=== PATIENT | female | born 1980 | race Caucasian/White ===

== ENCOUNTER 2020-04-13 13:26 | Emergency (ER) | payer MEDICAID, SELFPAY ==
--- NOTE | ~2020-04-13 | XR_ITS ---
XR chest 1V portable DATE: 04/13/2020 14:00 INDICATION: Fever TECHNIQUE: Portable AP chest on 04/13/2020 at 1402 hours COMPARISON: None FINDINGS: Normal heart size. No hilar or mediastinal enlargement. No pulmonary infiltrate or consolid ation, pleural effusion or pulmonary vascular congestion or pneumothorax. Included skeletal structure s are unremarkable. IMPRESSION: No active cardiopulmonary disease Reviewed, dictated and finalized at location A.
[2020-04-13 13:28] VITALS: BP 139/99; PULSE 93; RESP 18; TEMP 36.2; O2SAT 96
--- NOTE | 2020-04-13 13:47 | ED.GENADULT ---
HPI - General Adult General Chief complaint: Fever Stated complaint: Fever x3 days, history of possible spider bite Time Seen by Provider: 04/13/20 13:35 Source: patient History of Present Illness HPI narrative: Patient is a 39 y/o female complaining of fever up to 103 for last 3 days. She states that she took Ibuprofen which helps with her fever. She has some decreased appetite. She denies any vomiting, diarrhea, cough or SOB. Of noted, she had spider bite to her left perineum area 2-3 weeks ago for which she received antibiotic treatment. She denies any pain. She on her menses. Related Data Home Medications Medication Instructions Recorded Confirmed Unable to Obtain Home Medications 06/19/19 Allergies Allergy/AdvReac Type Severity Reaction Status Date / Time clarithromycin [From Biaxin] AdvReac Vomiting Verified 04/13/20 14:08 codeine AdvReac Vomiting Verified 04/13/20 14:08 Review of Systems Constitutional: Constitutional: Reports chills, Reports fever(s), Denies headache(s) and Denies weakness Eyes: Eyes: Denies blurry vision ENT: Denies headache(s) and Denies neck pain Cardiovascular: Cardiovascular: Denies chest pain and Denies dyspnea Respiratory: Respiratory: Denies cough and Denies dyspnea Gastrointestinal: Gastrointestinal: Denies abdominal pain, Denies diarrhea, Denies nausea and Denies vomiting Genitourinary: Genitourinary: Denies hematuria and Denies dysuria Musculoskeletal: Musculoskeletal: Denies back pain and Denies neck pain Neurologic: Denies headache(s) and Denies weakness PMFSH Past Medical History Medical History Alcohol abuse Anxiety Depression PTSD (post-traumatic stress disorder) Smoker Surgical History Surgical History H/O oral surgery Social History Social History Smoking packs per day: 0.5 Smoking cigarettes per day: 10.0 Smoking status: Current every day smoker Alcohol intake: former Substance use: former Substance use type: unknown Gender identity (if verbalized by the patient): Female Exam Const: General: no acute distress and well developed Orientation/consciousness: oriented to person, oriented to place, oriented to time and patient oriented x3 HENMT: Head: normocephalic Ears: external ears normal General nose exam: Normal external nose present Eyes: General: appearance normal, both eyes and all related structures Conjunctivae: conjunctivae normal Neck: Neck: normal visual inspection and full ROM Chest: Chest palpation & inspection: normal inspection of the chest and no tenderness Resp: Effort & Inspection: normal respiratory effort Auscultation: clear to auscultation bilaterally Cardio: Rate: regular rate Rhythm: regular rhythm GI: GI Palp: No abdominal tenderness and Yes Soft to palpation Skin: General skin exam: normal color and turgor normal Other: left perineum without sign of skin infection or abscess Neuro: General: oriented to person, oriented to place, oriented to time and patient oriented x3 Cognition (Neuro): normal cognition Extrem: General: normal to inspection, full ROM and no pedal edema Psych: Appearance: grossly normal Mental Status: mental status grossly normal Affect: normal affect Course Vital Signs Vital signs: Vital Signs Temperature 36.2 C L 04/13/20 13:28 Pulse Rate 93 04/13/20 13:28 Respiratory Rate 18 04/13/20 13:28 Blood Pressure 139/99 H 04/13/20 13:28 Pulse Oximetry 96 04/13/20 13:28 Temperature 36.2 C L 04/13/20 13:28 Pulse Rate 80 04/13/20 15:54 Respiratory Rate 18 04/13/20 15:54 Blood Pressure 132/84 04/13/20 15:54 Pulse Oximetry 98 04/13/20 15:54 Medical Decision Making Vital Signs Vital Signs: Vital Signs Temperature 36.2 C L 04/13/20 13:28 Pulse Rate 93 04/13/20 13:28 Respiratory Rate 18 04/13/20 13:28 Blood Pressure 139/99
[2020-04-13 14:14] LABS: Basophils Percent Auto 0.2 % (0.2-1.2); Eosinophils Absolute Auto 0.1 K/mm3 (0-0.3); Eosinophils Percent Auto 1.3 % (0-4.4); Hematocrit 39.4 % (37.0-47.0); Hemoglobin 13.6 g/dL (12.0-15.0); Immature Granulocyte Absolute 0.02 K/mm3 (0.00-0.031); Immature Granulocyte Percent A 0.4 % (0-0.5); Lymphocytes Absolute Auto 1.66 K/mm3 (0.9-3.2); Lymphocytes Percent Auto 29.9 % (18.3-44.2); Mean Corpuscular HGB Conc 34.5 g/dl (32-36); Mean Corpuscular Hemoglobin 29.8 pg (26-34); Mean Corpuscular Volume 86.4 fl (80-100); Mean Platelet Volume 10.4 fl (7.4-10.4); Monocytes Absolute Auto 0.4 K/mm3 (0.1-0.6); Monocytes Percent Auto 6.7 % (2.6-8.5); Neutrophils Absolute Auto 3.4 K/mm3 (1.3-6.7); Neutrophils Percent Auto 61.5 % (45.5-73.1); Platelet Count Result 218 k/mm3 (150-375); Red Blood Count 4.56 M/mm3 (4.2-5.4); Red Cell Distribution Width 12.7 % (11.5-14.5); White Blood Count 5.6 K/mm3 (4.5-10.0)
[2020-04-13 14:22] LABS: Add Urine Microscopic? YES; Appearance Urine Clear (Clear); Bilirubin Urine Negative (Negative); Blood Urine 3+ (Negative); Color Urine Yellow (Yellow); Glucose Urine UA Negative (Negative); Ketones Urine Negative (Negative); Leukocyte Esterase Ur Negative LEU/UL (Negative); Mucus Urine Heavy /lpf; Nitrate Urine Negative (Negative); Protein Urine 1+ mg/dL (Negative); RBC Urine >75 /hpf (0-2); Specific Grav Ur 1.023 (1.001-1.035); Squamous Epithelial Cell Urine Few /hpf (Few)
[2020-04-13 14:25] LABS: Alanine Aminotransferase 12 U/L (4-35); Albumin Level 4.9 g/dL (3.5-5.1); Alkaline Phosphatase 47 U/L (38-126); Anion Gap 10 mmol/L (8-16); Aspartate Amino Transferase 16 U/L (14-36); Bilirubin,Total 0.6 mg/dL (0.2-1.3); Blood Urea Nitrogen 9 mg/dL (7-17); Calcium 9.8 mg/dL (8.4-10.2); Carbon Dioxide 25 mmol/L (22-30); Chloride 103 mmol/L (98-107); Estimated CRCL calculation 83 ml/min; Estimated Glomerular Filt Rate > 60; Glucose 131 mg/dL (65-105); Potassium 3.7 mmol/L (3.4-5.0); Sodium 138 mmol/L (137-145)
[2020-04-13 15:54] VITALS: BP 132/84; PULSE 80; RESP 18; O2SAT 98
[2020-04-13 23:22] LABS: SARS-CoV-2 RNA PCR Negative
== END 2020-04-13 16:21 | disposition home or self-care (01) ==
PROVIDERS: Emergency Provider Emergency Medicine
DX: R50.9 Fever, unspecified (principal); Z20.828 Contact with and (suspected) exposure to other viral communicable diseases; F17.200 Nicotine dependence, unspecified, uncomplicated
CPT/HCPCS: 36415; 71045; 80053; 81001; 81025; 85025; 87635; 99283; C9803; U0003